=== PATIENT | female | born 1955 | race Caucasian/White ===

== ENCOUNTER 2016-09-01 00:43 | Inpatient (IN) | payer OTHER ==
[~2016-09-01] VITALS: Ht 160 cm; Wt 52.8 kg
[~2016-09-01 00:43] MED LIST: ALL DAY ALLERGY10 M2 PO; ASPIR-LOW81 MG PO; COUGH SYRUP PO; FLONASE16 G1 BOTH NARES; PANTOPRAZOLE SO40 MG PO; PRAVASTATIN SOD40 MG PO; SEROQUEL12.5 MG PO; SERTRALINE HCL100 MG PO; VENTOLIN HFA18 GM IH
[2016-09-01 02:13] LABS: HEMATOCRIT 36.8 % (36.0-46.0); MCH 30.6 PG (29.0-34.0); MCHC 34.5 G/DL (30.0-36.0); MCV 88.7 FL (83-99); PLATELET COUNT 259 K/uL (156-360); RBC DIS.WIDTH-CV 13.2 % (11.8-14.6); RED BLOOD COUNT 4.15 M/uL (3.80-5.20); WHITE BLOOD COUNT 8.9 K/uL (4.1-10.2)
[2016-09-01 02:26] LABS: CHLORIDE 109 mEq/L (99-109); POTASSIUM 3.4 mEq/L (3.7-5.4); SODIUM 144 mEq/L (136-147)
[2016-09-01 02:28] LABS: GLUCOSE 174 mg/dL (70-99)
[2016-09-01 02:29] LABS: ANION GAP 16 MEQ/L (2-14)
[2016-09-01 02:31] LABS: GFR ESTIMATE (CALCULATED) 48 mL/min/
[2016-09-01 02:32] LABS: UREA NITROGEN (BUN) 18 mg/dL (9-23)
[2016-09-01 02:59] LABS: BASE EXCESS -5.3 mEq/L (-3 to +3); BICARBONATE 18.9 mEq/L (22-26); CARBOXY HGB 1.8 % (0-5); COMMENTS - BLOOD GASES C+A+; DEVICE ROOM AIR; METHEMOGLOBIN 1.1 % (0-1.5); PCO2 32 mm Hg (35-45); PO2 66 mm Hg (80-100); SITE RR; TOTAL RESP RATE 18 resp/min; pH 7.38 (7.35-7.45)
[2016-09-01 03:44] LABS: TOTAL BILIRUBIN 0.8 mg/dL (0.0-1.0)
[2016-09-01 03:45] LABS: ALKALINE PHOSPHATASE 120 IU/L (3-129)
[2016-09-01 03:48] LABS: DIRECT BILIRUBIN 0.3 mg/dL (0.0-0.3)
[2016-09-01 05:09] LABS: SALICYLATE < 5.0 MG/DL (15-30)
[2016-09-01 07:15] LABS: BASE EXCESS -6.9 mEq/L (-3 to +3); BICARBONATE 17.7 mEq/L (22-26); CARBOXY HGB 1.6 % (0-5); COMMENTS - BLOOD GASES AC+; DEVICE NASAL CANNULA; METHEMOGLOBIN 1.1 % (0-1.5); O2 FLOW 2 L/MIN; PCO2 32 mm Hg (35-45); PO2 80 mm Hg (80-100); SITE RR; TOTAL RESP RATE 24 resp/min; pH 7.35 (7.35-7.45)
[2016-09-01 08:05] VITALS: BP 170/82
[2016-09-01 08:33] LABS: ADD MIUA? YES; BILIRUBIN NEGATIVE; BLOOD SMALL; COLOR YELLOW ((YELLOW)); GLUCOSE (STRIP) >=500; KETONES NEGATIVE; LEUKOCYTES NEGATIVE; NITRITE NEGATIVE; PROTEIN (STRIP) NEGATIVE; SPECIFIC GRAVITY 1.013 (1.000-1.030); UROBILINOGEN 0.2 MG/DL (0.2-1.0)
[2016-09-01 08:59] LABS: AMPHETAMINES QUANT VALUE 0 NG/ML; BARBITUATES QUANT VALUE 0 NG/ML; BENZODIAZEPINES QUANT VALUE 0 NG/ML; BENZODIAZEPINES, URINE SCREEN Negative (200 ng/mL); MARIJUANA QUANT VALUE 0 NG/ML; PHENCYCLIDINE QUANT VALUE 0 NG/ML
[2016-09-01 09:22] LABS: BACTERIA RARE /HPF; EPITHELIAL CELLS RARE /HPF; MUCUS TRACE /LPF; UCUL ADDED? NO; WHITE BLOOD CELLS 0-5 /HPF (0-5)
[2016-09-01 11:51] VITALS: BP 135/64
[2016-09-01] MEDS ORDERED: OLANZAPINE20 MG PO (13:18)
[2016-09-01] MEDS ORDERED: ATORVASTATIN CA40 MG PO (13:19)
[2016-09-01] MEDS ORDERED: BUSPAR10 MG PO (13:19)
[2016-09-01] MEDS ORDERED: VENTOLIN HFA18 GM IH (13:23)
[2016-09-01 17:43] VITALS: BP 188/77
[2016-09-01 20:00] VITALS: BP 119/60
[2016-09-01 23:05] VITALS: BP 108/54
[2016-09-02 03:57] VITALS: BP 90/51
[2016-09-02 06:20] LABS: EOSINOPHIL (%) 0 % (0-5); HEMATOCRIT 31.5 % (36.0-46.0); IMMATURE GRANULOCYTE (%) 1.3 % (0.0-0.7); IMMATURE GRANULOCYTE COUNT 0.2 K/uL; INSTRUMENT ABS NEUTROPHIL CT 16.2 K/uL; MCH 31.7 PG (29.0-34.0); MCHC 34.9 G/DL (30.0-36.0); MCV 90.8 FL (83-99); MEAN PLAT.VOLUME 10.1 uM^3 (9.5-12.4); MONOCYTE (%) 3.4 % (3-12); MONOCYTE COUNT 0.6 K/uL (0-0.8); NEUTROPHIL (%) 89.5 % (45-76); NEUTROPHIL COUNT 16.2 K/uL (1.8-6.4); PLATELET COUNT 232 K/uL (156-360); RBC DIS.WIDTH-CV 13.9 % (11.8-14.6); RED BLOOD COUNT 3.47 M/uL (3.80-5.20); WHITE BLOOD COUNT 18.1 K/uL (4.1-10.2)
[2016-09-02 06:48] LABS: ANION GAP 9 MEQ/L (2-14); CHLORIDE 112 MEQ/L (99-109); GFR ESTIMATE (CALCULATED) > 59 mL/min/; GLUCOSE 154 mg/dL (70-99); SAMPLE HEMOLYSIS CHECK 0; SAMPLE ICTERIC CHECK 0; SAMPLE LIPEMIA CHECK 0; SODIUM 141 MEQ/L (136-147); UREA NITROGEN (BUN) 16 mg/dL (9-23)
[2016-09-02 07:14] VITALS: BP 115/58
[2016-09-02 11:26] VITALS: BP 131/56
[2016-09-02 16:24] VITALS: BP 101/53
[2016-09-02 20:40] VITALS: BP 130/78
[2016-09-02 23:52] VITALS: BP 108/52; BP 110/58
[2016-09-03 04:40] VITALS: BP 126/61
[2016-09-03 06:37] LABS: EOSINOPHIL (%) 0.1 % (0-5); IMMATURE GRANULOCYTE (%) 1.9 % (0.0-0.7); IMMATURE GRANULOCYTE COUNT 0.3 K/uL; INSTRUMENT ABS NEUTROPHIL CT 13.5 K/uL; LYMPHOCYTE COUNT 0.9 K/uL (1.0-2.8); MCH 32.1 PG (29.0-34.0); MCV 91.7 FL (83-99); MEAN PLAT.VOLUME 10.5 uM^3 (9.5-12.4); MONOCYTE (%) 4.2 % (3-12); MONOCYTE COUNT 0.6 K/uL (0-0.8); NEUTROPHIL (%) 87.8 % (45-76); NEUTROPHIL COUNT 13.5 K/uL (1.8-6.4); PLATELET COUNT 240 K/uL (156-360); RBC DIS.WIDTH-CV 14.3 % (11.8-14.6); RED BLOOD COUNT 3.49 M/uL (3.80-5.20); WHITE BLOOD COUNT 15.3 K/uL (4.1-10.2)
[2016-09-03 07:14] LABS: ANION GAP 11 MEQ/L (2-14); CHLORIDE 108 MEQ/L (99-109); GFR ESTIMATE (CALCULATED) > 59 mL/min/; GLUCOSE 124 mg/dL (70-99); POTASSIUM 3.9 MEQ/L (3.7-5.4); SAMPLE HEMOLYSIS CHECK 0; SAMPLE ICTERIC CHECK 0; SAMPLE LIPEMIA CHECK 0; SODIUM 140 MEQ/L (136-147); UREA NITROGEN (BUN) 19 mg/dL (9-23)
[2016-09-03 07:15] VITALS: BP 133/63
[2016-09-03 12:05] VITALS: BP 140/73
[2016-09-03 15:30] VITALS: BP 95/57
[2016-09-03 23:39] VITALS: BP 140/62
[2016-09-04 07:09] LABS: EOSINOPHIL (%) 0.7 % (0-5); EOSINOPHIL COUNT 0.1 K/uL (0-0.3); HEMATOCRIT 31.5 % (36.0-46.0); IMMATURE GRANULOCYTE (%) 2.3 % (0.0-0.7); IMMATURE GRANULOCYTE COUNT 0.2 K/uL; LYMPHOCYTE COUNT 2.1 K/uL (1.0-2.8); MCH 30.1 PG (29.0-34.0); MCHC 33.3 G/DL (30.0-36.0); MCV 90.3 FL (83-99); MEAN PLAT.VOLUME 10.1 uM^3 (9.5-12.4); MONOCYTE (%) 5.8 % (3-12); MONOCYTE COUNT 0.6 K/uL (0-0.8); NEUTROPHIL (%) 69.9 % (45-76); PLATELET COUNT 209 K/uL (156-360); RBC DIS.WIDTH-CV 13.8 % (11.8-14.6); RBC DIS.WIDTH-SD 45.6 % (39-53); RED BLOOD COUNT 3.49 M/uL (3.80-5.20)
[2016-09-04 07:20] VITALS: BP 142/78
[2016-09-04 07:31] LABS: ANION GAP 8 MEQ/L (2-14); CHLORIDE 108 MEQ/L (99-109); GFR ESTIMATE (CALCULATED) > 59 mL/min/; POTASSIUM 3.3 MEQ/L (3.7-5.4); SAMPLE HEMOLYSIS CHECK 0; SAMPLE ICTERIC CHECK 0; SAMPLE LIPEMIA CHECK 0; SODIUM 141 MEQ/L (136-147); UREA NITROGEN (BUN) 19 mg/dL (9-23)
[2016-09-04 07:34] LABS: GLUCOSE 89 mg/dL (70-99)
[2016-09-04 15:41] VITALS: BP 136/60
[2016-09-04 19:55] VITALS: BP 120/61
[2016-09-04 23:50] VITALS: BP 112/72
[2016-09-05 03:55] VITALS: BP 118/82
[2016-09-05 07:23] LABS: ANION GAP 5 MEQ/L (2-14); CHLORIDE 107 MEQ/L (99-109); GFR ESTIMATE (CALCULATED) > 59 mL/min/; GLUCOSE 84 mg/dL (70-99); MAGNESIUM 2.2 mg/dl (1.3-2.7); POTASSIUM 3.4 MEQ/L (3.7-5.4); SAMPLE HEMOLYSIS CHECK 0; SAMPLE ICTERIC CHECK 0; SAMPLE LIPEMIA CHECK 0; SODIUM 142 MEQ/L (136-147); UREA NITROGEN (BUN) 14 mg/dL (9-23)
[2016-09-05 07:45] VITALS: BP 110/64
[2016-09-05 11:30] VITALS: BP 112/68
[2016-09-05 15:35] VITALS: BP 120/72
[2016-09-05 20:10] VITALS: BP 131/62
[2016-09-05 23:42] VITALS: BP 127/68
[2016-09-06 06:23] LABS: EOSINOPHIL (%) 7.1 % (0-5); EOSINOPHIL COUNT 0.6 K/uL (0-0.3); HEMATOCRIT 36.2 % (36.0-46.0); IMMATURE GRANULOCYTE (%) 2.6 % (0.0-0.7); IMMATURE GRANULOCYTE COUNT 0.2 K/uL; INSTRUMENT ABS NEUTROPHIL CT 5.1 K/uL; LYMPHOCYTE COUNT 2.5 K/uL (1.0-2.8); MCH 30.7 PG (29.0-34.0); MCV 90.3 FL (83-99); MEAN PLAT.VOLUME 9.9 uM^3 (9.5-12.4); MONOCYTE (%) 5.6 % (3-12); MONOCYTE COUNT 0.5 K/uL (0-0.8); NEUTROPHIL (%) 56.9 % (45-76); NEUTROPHIL COUNT 5.1 K/uL (1.8-6.4); PLATELET COUNT 238 K/uL (156-360); RBC DIS.WIDTH-CV 13.4 % (11.8-14.6); RBC DIS.WIDTH-SD 44.6 % (39-53); RED BLOOD COUNT 4.01 M/uL (3.80-5.20); WHITE BLOOD COUNT 8.9 K/uL (4.1-10.2)
[2016-09-06 06:54] LABS: ALKALINE PHOSPHATASE 93 IU/L (3-129); ANION GAP 9 MEQ/L (2-14); CHLORIDE 105 MEQ/L (99-109); GFR ESTIMATE (CALCULATED) > 59 mL/min/; GLUCOSE 81 mg/dL (70-99); POTASSIUM 3.9 MEQ/L (3.7-5.4); SAMPLE HEMOLYSIS CHECK 0; SAMPLE ICTERIC CHECK 0; SAMPLE LIPEMIA CHECK 0; SODIUM 139 MEQ/L (136-147); UREA NITROGEN (BUN) 20 mg/dL (9-23)
[2016-09-06 07:10] VITALS: BP 120/64
[2016-09-06] MEDS ORDERED: PREDNISONE10 MG PO (09:07)
[2016-09-06] MEDS ORDERED: ADVAIR HFA120 INHALA IH (09:07)
[2016-09-06] MEDS ORDERED: MYCOSTATIN 100,60 ML PO (09:07)
[2016-09-06] MEDS ORDERED: CEFTIN500 MG PO (09:07)
== END 2016-09-06 11:43 | disposition home or self-care (01) | DRG 189 ==
LOC: EME 00:43 → EDOF 03:24 → 2EAST 04:16 → EDOF 04:16 → 4EAST 07:59 → 2EAST 09-02 19:42
PROVIDERS: Emergency Medicine; Hospitalist; Internal Medicine; Physician Assistant Medical
DX: J96.01 Acute respiratory failure with hypoxia (principal); J20.9 Acute bronchitis, unspecified; B37.0 Candidal stomatitis; E87.4 Mixed disorder of acid-base balance; E87.6 Hypokalemia; G10 Huntington's disease; I10 Essential (primary) hypertension; E78.5 Hyperlipidemia, unspecified; R13.10 Dysphagia, unspecified; K21.9 Gastro-esophageal reflux disease without esophagitis; F31.9 Bipolar disorder, unspecified; F41.9 Anxiety disorder, unspecified; N39.3 Stress incontinence (female) (male); Z79.82 Long term (current) use of aspirin; Z88.0 Allergy status to penicillin; Z91.81 History of falling
CPT/HCPCS: 36600; 71020; 71250; 74230; 78582; 80048; 80053; 80076; 80306 90; 81003; 82803; 83605; 83735; 85025; 85027; 85379; 87040; 92610 GN; 92611 GN; 94640; 94640 76; 94799; 99202; 99281; 99285; A9540; A9567; G0480; J0456; J0696; J1650; J2930; J3475; J7030; J7040; J7050; J7512

== ENCOUNTER 2016-10-22 14:38 | Emergency (ER) | payer OTHER ==
[~2016-10-22] VITALS: Ht 160 cm; Wt 56.0 kg
[~2016-10-22 14:38] MED LIST changes: +ADVAIR HFA120 INHALA IH; +ATORVASTATIN CA40 MG PO; +BUSPAR10 MG PO; +CEFTIN500 MG PO; +MYCOSTATIN 100,60 ML PO; +OLANZAPINE20 MG PO; +PREDNISONE10 MG PO
[2016-10-22] MEDS ORDERED: PREDNISONE20 MG PO (17:21)
[2016-10-22] MEDS ORDERED: DUONEB 2.5-0.5 M3 ML AEROSOL (17:21)
[2016-10-22 17:47] VITALS: BP 134/86
== END 2016-10-22 17:48 | disposition home or self-care (01) ==
LOC: EME 14:38
DX: J44.1 Chronic obstructive pulmonary disease with (acute) exacerbation (principal); K21.9 Gastro-esophageal reflux disease without esophagitis
CPT/HCPCS: 71020; 94640; 94640 76; 99281; 99284; J7512

== ENCOUNTER 2016-11-22 15:25 | Observation (INO) | payer OTHER ==
[~2016-11-22] VITALS: Ht 160 cm; Wt 56.1 kg
[~2016-11-22 15:25] MED LIST changes: +DUONEB 2.5-0.5 M3 ML AEROSOL; +PREDNISONE20 MG PO
[2016-11-22 15:58] LABS: HEMATOCRIT 40.6 % (36.0-46.0); MCH 31.4 PG (29.0-34.0); MCHC 34.7 G/DL (30.0-36.0); MCV 90.4 FL (83-99); MEAN PLAT.VOLUME 9.9 uM^3 (9.5-12.4); PLATELET COUNT 283 K/uL (156-360); RBC DIS.WIDTH-CV 13.2 % (11.8-14.6); RBC DIS.WIDTH-SD 43.8 % (39-53); RED BLOOD COUNT 4.49 M/uL (3.80-5.20); WHITE BLOOD COUNT 6.5 K/uL (4.1-10.2)
[2016-11-22 16:09] LABS: CHLORIDE 112 mEq/L (99-109); POTASSIUM 3.5 mEq/L (3.7-5.4); SODIUM 141 mEq/L (136-147)
[2016-11-22 16:10] LABS: GLUCOSE 110 mg/dL (70-99)
[2016-11-22 16:12] LABS: ANION GAP 8 MEQ/L (2-14)
[2016-11-22 16:14] LABS: GFR ESTIMATE (CALCULATED) > 59 mL/min/
[2016-11-22 16:15] LABS: UREA NITROGEN (BUN) 15 mg/dL (9-23)
[2016-11-22 17:00] LABS: TROP-I INTERPRETATION NEGATIVE; TROPONIN-I < 0.01 ng/mL (0.0-0.30)
[2016-11-22 22:38] VITALS: BP 139/79
[2016-11-23 03:27] VITALS: BP 110/56
[2016-11-23 05:52] LABS: HEMATOCRIT 38.3 % (36.0-46.0); MCH 31.8 PG (29.0-34.0); MCHC 35.2 G/DL (30.0-36.0); MCV 90.1 FL (83-99); MEAN PLAT.VOLUME 10.2 uM^3 (9.5-12.4); PLATELET COUNT 276 K/uL (156-360); RBC DIS.WIDTH-CV 13.2 % (11.8-14.6); RBC DIS.WIDTH-SD 43.8 % (39-53); RED BLOOD COUNT 4.25 M/uL (3.80-5.20); WHITE BLOOD COUNT 6.3 K/uL (4.1-10.2)
[2016-11-23 06:13] LABS: ANION GAP 11 MEQ/L (2-14); CHLORIDE 104 MEQ/L (99-109); GFR ESTIMATE (CALCULATED) > 59 mL/min/; GLUCOSE 151 mg/dL (70-99); POTASSIUM 3.7 MEQ/L (3.7-5.4); SAMPLE HEMOLYSIS CHECK 0; SAMPLE ICTERIC CHECK 0; SAMPLE LIPEMIA CHECK 0; SODIUM 137 MEQ/L (136-147); UREA NITROGEN (BUN) 14 mg/dL (9-23)
[2016-11-23 07:41] VITALS: BP 127/62
[2016-11-23 10:38] VITALS: BP 142/71
[2016-11-23] MEDS ORDERED: BUSPAR10 MG PO (11:58)
[2016-11-23] MEDS ORDERED: PROTONIX40 MG PO (11:58)
[2016-11-23] MEDS ORDERED: SINGULAIR10 MG PO (11:58)
[2016-11-23] MEDS ORDERED: ZOLOFT100 MG PO (11:58)
[2016-11-23] MEDS ORDERED: LIPITOR40 MG PO (11:58)
[2016-11-23] MEDS ORDERED: ZYPREXA20 MG PO (11:58)
[2016-11-23] MEDS ORDERED: FLONASE16 G1 BOTH NARES (11:59)
[2016-11-23 15:53] VITALS: BP 121/62
[2016-11-23 21:11] VITALS: BP 142/67
[2016-11-23 23:56] VITALS: BP 123/63
[2016-11-24 03:57] VITALS: BP 136/72; BP 198/105
[2016-11-24 07:32] VITALS: BP 115/58
[2016-11-24] MEDS ORDERED: PREDNISONE10 MG PO (09:49)
[2016-11-24] MEDS ORDERED: VENTOLIN HFA18 GM IH (09:49)
== END 2016-11-24 17:43 | disposition home or self-care (01) ==
LOC: EME 15:25 → 5WEST 20:08 → EDOF 20:08 → ENRESERV 20:09 → CANRESERV 22:17 → ENRESERV 22:21 → 5WEST 22:38 → ENPENDDIS 11-24 → 5WEST 11-24 17:43
PROVIDERS: Hospitalist
DX: J45.901 Unspecified asthma with (acute) exacerbation (principal); J20.9 Acute bronchitis, unspecified; G10 Huntington's disease; R13.10 Dysphagia, unspecified; I10 Essential (primary) hypertension; K21.9 Gastro-esophageal reflux disease without esophagitis; F31.9 Bipolar disorder, unspecified; F41.9 Anxiety disorder, unspecified; E78.5 Hyperlipidemia, unspecified; Z88.0 Allergy status to penicillin; Z83.3 Family history of diabetes mellitus; Z82.0 Family history of epilepsy and other diseases of the nervous system
CPT/HCPCS: 71020; 80048; 84484; 85027; 93005; 94640; 94640 76; 99202; 99281; 99285; G0378; G8978 GP CI; G8979 GP CI; G8980 GP CI; G8987 GO CH; G8988 GO CH; G8989 GO CH; J1650; J2930; J3475; J7512

== ENCOUNTER 2017-01-07 10:57 | Emergency (ER) | payer OTHER ==
[~2017-01-07] VITALS: Ht 160 cm; Wt 56.3 kg
[~2017-01-07 10:57] MED LIST changes: +LIPITOR40 MG PO; +PROTONIX40 MG PO; +SINGULAIR10 MG PO; +ZOLOFT100 MG PO; +ZYPREXA20 MG PO
[2017-01-07 11:46] LABS: HEMATOCRIT 37.6 % (36.0-46.0); MCHC 34.6 G/DL (30.0-36.0); MCV 89.7 FL (83-99); MEAN PLAT.VOLUME 9.6 uM^3 (9.5-12.4); PLATELET COUNT 346 K/uL (156-360); RBC DIS.WIDTH-CV 12.7 % (11.8-14.6); RBC DIS.WIDTH-SD 41.4 % (39-53); RED BLOOD COUNT 4.19 M/uL (3.80-5.20); WHITE BLOOD COUNT 12.6 K/uL (4.1-10.2)
[2017-01-07 11:54] LABS: CHLORIDE 111 mEq/L (99-109); POTASSIUM 3.7 mEq/L (3.7-5.4); SODIUM 141 mEq/L (136-147)
[2017-01-07 11:58] LABS: ANION GAP 15 MEQ/L (2-14); GLUCOSE 182 mg/dL (70-99)
[2017-01-07 12:00] LABS: GFR ESTIMATE (CALCULATED) > 59 mL/min/
[2017-01-07 12:01] LABS: UREA NITROGEN (BUN) 13 mg/dL (9-23)
[2017-01-07 12:21] LABS: TROP-I INTERPRETATION NEGATIVE; TROPONIN-I < 0.01 ng/mL (0.0-0.30)
[2017-01-07] MEDS ORDERED: ZITHROMAX Z-PA250 MG PO (14:38)
[2017-01-07] MEDS ORDERED: PREDNISONE50 MG PO (14:38)
[2017-01-07 14:56] VITALS: BP 101/70
== END 2017-01-07 15:57 | disposition home or self-care (01) ==
LOC: EME 10:57
PROVIDERS: Emergency Medicine
DX: J44.1 Chronic obstructive pulmonary disease with (acute) exacerbation (principal)
CPT/HCPCS: 71020; 80048; 83880; 84484; 85027; 93005; 94640; 94640 76; 99281; 99284; J7512